=== PATIENT | female | born 1940 | race Caucasian/White ===

== ENCOUNTER 2017-01-29 13:42 | Outpatient (RCR) | payer MEDICARE, OTHER | END 2017-04-29 | disposition home or self-care (01) | LOC: MKS.ESL.OT | DX: S52.024D Nondisplaced fracture of olecranon process without intraarticular extension of right ulna, subsequent encounter for closed fracture with routine healing (principal); X58.XXXD Exposure to other specified factors, subsequent encounter | CPT/HCPCS: G8984-GO; G8985-GO; G8986-GO; G8988-GO ==

== ENCOUNTER 2017-08-08 08:18 | Emergency (ER) | payer MEDICARE, OTHER ==
[~2017-08-08] VITALS: Ht 152.4 cm; Wt 52.7 kg
[2017-08-08 08:22] VITALS: BP 135/73; PULSE 87; TEMP 97.5
[2017-08-08] MEDS ORDERED: HCTZ 25MG TAB25 MG PO (09:00)
[2017-08-08] MEDS ORDERED: TAZTIA240 PO (09:00)
== END 2017-08-08 09:37 | disposition home or self-care (01) ==
LOC: COL.ER 08:18
DX: S00.93XA Contusion of unspecified part of head, initial encounter (principal); S43.401A Unspecified sprain of right shoulder joint, initial encounter; W18.39XA Other fall on same level, initial encounter; Y93.01 Activity, walking, marching and hiking; Y92.009 Unspecified place in unspecified non-institutional (private) residence as the place of occurrence of the external cause

== ENCOUNTER → 2017-10-26 | Outpatient (CLI) | payer MEDICARE, OTHER ==
[~2017-10-26] MED LIST: HCTZ 25MG TAB25 MG PO; TAZTIA240 PO
== END ==
LOC: MC.RAD 10:11
DX: Z12.31 Encounter for screening mammogram for malignant neoplasm of breast (principal)

== ENCOUNTER → 2018-04-14 | Emergency (ER) | payer MEDICARE, OTHER ==
[~2018-04-14] VITALS: Ht 149.9 cm; Wt 50.9 kg
[~2018-04-14] MED LIST changes: +ALPHAG-P-0.1-5ML; +ASPIRIN 81M81 MG/TA2 PO; +LEVOXYL0.025 MG PO; +LOTENSIN5 MG; +MULTI VITAMINS1 TAB PO; +PRESERVISION1 SGL PO; +VITAMIN D31000 I1 PO; +XALATAN EYE DROPS OD
[2018-04-14 08:20] VITALS: TEMP 97.6
[2018-04-14 09:37] LABS: BASO % 0.4 % (0.0-2.0); EOS # 0.1 (0.0-0.7); EOS % 0.7 % (0-4.0); GRAN # 6.4 (1.4-6.5); GRAN % 84.9 % (42.2-75.2); HEMOGLOBIN 11.3 g/dl (12.5-16.0); LYMPH # 0.7 (1.2-3.4); LYMPH % 8.7 % (20.0-51.0); MEAN CELL VOLUME 90 fl (80.0-100.0); MEAN CORPUSCULAR HEMOGLOBIN 29 pg (27.0-31.0); MEAN CORPUSCULAR HGB CONC 33 g/dl (33.0-37.0); MEAN PLATELET VOLUME 8.8 fl (7.4-10.4); MONO # 0.4 (0.1-0.6); MONO % 4.9 % (1.7-9.3); PLATELET COUNT 307 K/mm3 (130-400); RED BLOOD COUNT 3.85 M/mm3 (4.10-5.30); REDCELL DISTRIBUTION WIDTH-CV 12.7 % (11.5-14.5)
[2018-04-14 09:38] LABS: HEMATOCRIT 34.5 % (37.0-47.0)
[2018-04-14 09:42] LABS: PROTHROMBIN TIME 11.7 SECONDS (9.7-12.8)
[2018-04-14 09:50] LABS: ALBUMIN 3.8 gm/dL (3.5-5.0); BILIRUBIN,TOTAL 0.3 mg/dL (0.0-1.0); CALCIUM 8.7 mg/dL (8.4-10.2); CREATININE, serum 1.11 mg/dL (0.52-1.25); POTASSIUM 4.3 mmol/L (3.4-5.0); TOTAL PROTEIN 7.1 gm/dL (6.4-8.2)
[2018-04-14 14:06] VITALS: BP 161/83; PULSE 71
== END ==
LOC: COL.ER 08:13
PROVIDERS: Emergency Medicine
DX: K92.2 Gastrointestinal hemorrhage, unspecified (principal); Z90.710 Acquired absence of both cervix and uterus; Z79.82 Long term (current) use of aspirin
CPT/HCPCS: J7030

== ENCOUNTER 2018-06-23 09:15 | Outpatient (RCR) | payer MEDICARE | END 2018-08-16 10:58 | disposition home or self-care (01) | LOC: MKS.ESL.PT 09:15 | DX: R26.89 Other abnormalities of gait and mobility (principal); R42 Dizziness and giddiness; G20 Parkinson's disease; Z91.81 History of falling | CPT/HCPCS: G8978-GP; G8979-GP ==

== ENCOUNTER 2018-12-30 13:27 | Outpatient (CLI) | payer MEDICARE, OTHER ==
[2018-12-30 14:08] VITALS: BP 122/56; PULSE 87; TEMP 96.8
[2018-12-30] MEDS ORDERED: TYLENOL SU325 MG/SUP RC (14:48)
[2018-12-30] MEDS ORDERED: LOTENSIN5 MG PO (14:49)
[2018-12-30] MEDS ORDERED: DULCOLAX S10 MG/SUPP RC (14:50)
[2018-12-30] MEDS ORDERED: ALPHAGAN P 15 M15 ML OD (14:50)
[2018-12-30] MEDS ORDERED: LEADER NATURA500 MCG PO (14:51)
[2018-12-30] MEDS ORDERED: IMODIUM 2MG CAPS2 MG PO (14:52)
[2018-12-30] MEDS ORDERED: FERROUSAL325 MG PO (14:52)
[2018-12-30] MEDS ORDERED: GOOD NEIGH1200 MG/15 (14:53)
[2018-12-30] MEDS ORDERED: ALMACONE 360 M360 ML PO (14:54)
[2018-12-30] MEDS ORDERED: MIRALAX PA17 GM/Dose PO (14:55)
[2018-12-30] MEDS ORDERED: PHENERGAN 25 TA25 MG PO (14:55)
[2018-12-30] MEDS ORDERED: REFRESH TEARS 330 ML OP (14:56)
[2018-12-30] MEDS ORDERED: SINEMET 10/101 UDTAB PO (14:57)
[2018-12-30] MEDS ORDERED: D3-5050000 IU (14:58)
[2018-12-30] MEDS ORDERED: TYLENOL 325MG325 MG PO (14:59)
== END 2018-12-30 16:09 | disposition home or self-care (01) ==
LOC: EUO 13:27
DX: M81.0 Age-related osteoporosis without current pathological fracture (principal)
CPT/HCPCS: J3489